=== PATIENT | female | born 1935 | race Asian ===

== ENCOUNTER 2017-09-17 08:10 | Outpatient (CLI) | payer MEDICARE, OTHER | END 2017-09-17 08:11 | disposition critical access hospital (66) | LOC: EMS 08:10 | PROVIDERS: ATTEND Surgery | DX: I46.9 Cardiac arrest, cause unspecified (principal) | CPT/HCPCS: A0425; A0433 ==

== ENCOUNTER 2017-09-17 08:25 | Emergency (ER) | payer MEDICARE, OTHER ==
[2017-09-17] MEDS ORDERED: MAGNESIUM SULFATE 2 GRAM 2 GM/50 ML BAG IV ONE (08:45)
[2017-09-17] MEDS ORDERED: SODIUM CHLORIDE 0.9% 1,000 ML IV ONE (08:45)
--- NOTE | 2017-09-17 08:48 | ED Physician Documentation ---
PD HPI CPR - Stated complaint Stated Complaint: POST ARREST - History obtained from History obtained from: Family, EMS - History of Present Illness Timing - onset: Today Timing - onset during: Rest Preceding symptoms: Diaphoresis, Weakness, NV Contributing factors: Choked (last night), Other (PMR on prednisone) Recently seen: Other (on the way to get a sed rate checked.) Witnessed: Arrest witnessed Fall: No fall Bystander CPR: No bystander CPR, Downtime before CPR (2minutes) EMS findings: Unresponsive, Apneic, Pulseless, V fib Treatment [employer]CHO[employer] PHOTOGR[employer]HER: CPR, Defibrillated, Oxygen, Intubated, Epi, IV Advanced directive: Full code - Additional information Additional information: 81-year-old female with history of PMR was getting ready to go get a blood test drawn this morning for her sedimentation rate when she was sitting on the commode did not feel well and collapsed and was unresponsive. Her immediately called 911 and first responders arrived within 2 minutes. CPR was done effectively with good end-tidal CO2 she was eventually intubated shocked once and given 2 rounds of epinephrine she is now regained a spontaneous pulse and a narrow complex rhythm. She is brought to the hospital for further evaluation. Review of Systems Unable to obtain: Intubated, Other (Review of systems taken from the patient's ) Constitutional: denies: Fever Eyes: denies: Decreased vision Ears: denies: Ear pain Nose: denies: Congestion Throat: denies: Sore throat Cardiac: denies: Chest pain / pressure Respiratory: reports: Cough (Cough once in the middle of the night). denies: Dyspnea GI: reports: Nausea : denies: Dysuria, Frequency Skin: denies: Rash Musculoskeletal: reports: Extremity pain. denies: Neck pain, Back pain Neurologic: denies: Generalized weakness, Focal weakness, Numbness PD PAST MEDICAL HISTORY - Past Medical History Cardiovascular: Hypertension, High cholesterol Respiratory: COPD Endocrine/Autoimmune: None GI: GERD : None HEENT: None Psych: None Musculoskeletal: Osteoporosis, Chronic back pain, Other Derm: Other - Past Surgical History Past Surgical History: Yes General: Colonoscopy Ortho: Spine surgery, Other - Present Medications Home Medications: Ambulatory Orders Medication Instructions Recorded Confirmed Esomeprazole Magnesium [Nexium] 20 mg PO HS 02/28/13 03/06/15 Gabapentin 300 mg PO BID 02/28/13 03/06/15 Metoprolol Succinate 25 mg PO HS 02/28/13 03/06/15 Acetaminophen [Tylenol] 325 mg ORAL ONCE PRN 05/26/14 03/06/15 Calcium Citrate/Vitamin D2 1 tab ORAL BID 05/26/14 03/06/15 [Tiburcio-Citrate Plus Vitamin D Tab] Cyanocobalamin/Folic Acid [Vitamin 1 each PO DAILY 05/26/14 03/06/15 G24-[id number] Acid Tablet] Losartan [Cozaar] 25 mg ORAL DAILY 05/26/14 03/06/15 Magnesium Oxide/Mag Aa Chelate 300 mg PO DAILY 05/26/14 03/06/15 [Magnesium 300 mg Capsule] Multivit-Min/FA/Lycopene/Lut 1 tab ORAL DAILY 05/26/14 03/06/15 [Centrum Silver Tablet] Zolpidem [Ambien] 5 mg PO HS 05/26/14 03/06/15 predniSONE [Prednisone] 7 mg ORAL DAILY 05/26/14 03/06/15 Hard Microfilm Mounter [[place] Advance 12/29/14 03/06/15 Lead Refiner] Hydroxychloroquine [Plaquenil] 200 mg PO DAILY 12/29/14 03/06/15 oxyCODONE [Roxicodone] 1 tab PO Q4-6H PRN 12/29/14 03/06/15 HYDROcodone/CHLORPHEN POLIS 5 ml PO Q12H PRN 03/06/15 03/06/15 [Tussionex Pennkinetic Susp] - Allergies Allergies/Adverse Reactions: Allergies Allergy/AdvReac Type Severity Reaction Status Date / Time niacin Allergy Mild Unknown Verified 03/06/15 09:12 Penicillins Allergy Mild Rash Verified 03/06/15 09:03 aspirin AdvReac Intermediate Nausea Verified 03/06/15 09:12 hydrocodone AdvReac Mild Itching Verified 03/06/15 09:13 - Social History Does the pt smoke?: No Smoking Status: Never smoker Does the pt drink ETOH?: No Does the pt have substance abuse?: No - Immunizations Immunizations are current?: Yes Immunizations: TDAP >10years/unknown - POLST Patient has POLST: No PD ED PE NORMAL - Vitals Vital signs reviewed: Yes (Hypertensive) - General General: Well developed/nourished, Other (The patient is intubated and being mechanically ventilated she does make an occasional spontaneous respiratory effort.) - HEENT HEENT: Atraumatic, Other (Pupils are fixed and dilated) - Neck Neck: Supple, no meningeal sign, No bony TTP - Cardiac Cardiac: RRR, No murmur - Respiratory Respiratory: No respiratory distress, Clear bilaterally - Abdomen Abdomen: Soft, Non tender - Back Back: No CVA TTP, No spinal TTP - Derm Derm: Normal color, Warm and dry, No rash - Extremities Extremities: No edema - Neuro Neuro: Other (The patient is motionless pupils are fixed and dilated she does make an occasional effort to breathe.) Eye Opening: None Motor: None Verbal: None GCS Score: 3 Results - Vitals Vitals: Vital Signs - 24 hr 09/17/17 09/17/17 09/17/17 08:30 08:51 08:53 Temperature 35.6 C L Heart Rate 74 67 67 Respiratory 16 16 Rate Blood Pressure 134/86 H 122/83 H 97/70 O2 Saturation 95 95 99 09/17/17 09/17/17 09/17/17 08:56 08:58 09:01 Temperature Heart Rate 67 64 75 Respiratory 16 16 Rate Blood Pressure 114/74 116/70 O2 Saturation 98 99 09/17/1718 09/17/17 09:05 09:22 09:28 Temperature Heart Rate 74 67 71 Respiratory 16 16 16 Rate Blood Pressure 116/56 L 107/62 102/49 L O2 Saturation 100 100 100 09/17/1718 09/17/17 09:30 09:35 09:40 Temperature Heart Rate 66 65 65 Respiratory 16 16 16 Rate Blood Pressure 96/72 100/57 L 102/58 L O2 Saturation 100 98 97 09/17/1718 09/17/17 09:45 09:55 10:00 Temperature 35.3 C L Heart Rate 67 63 52 L Respiratory 16 16 16 Rate Blood Pressure 99/49 L 97/54 L O2 Saturation 98 96 95 09/17/17 09/17/17 09/17/17 10:05 10:10 10:15 Temperature Heart Rate 64 56 L 64 Respiratory 16 16 16 Rate Blood Pressure 98/50 L 94/51 L 102/54 L O2 Saturation 96 87 L 98 09/17/17 09/17/17 09/17/17 10:20 10:25 10:30 Temperature Heart Rate 66 58 L 58 L Respiratory 16 16 16 Rate Blood Pressure 108/61 91/54 L 91/54 L O2 Saturation 95 87 L 89 L 09/17/17 09/17/17 09/17/17 10:36 10:45 10:47 Temperature Heart Rate 55 L 67 68 Respiratory 16 16 Rate Blood Pressure 89/58 L 89/58 L O2 Saturation 91 L 88 L 88 L 09/17/17 09/17/17 10:51 10:55 Temperature Heart Rate 67 Respiratory 16 Rate Blood Pressure 104/65 92/54 L O2 Saturation 94 97 Oxygen O2 Source Mechanical ventilator - EKG (time done) 0836 Rate: Rate (enter#) (74) [place]: Other (LAFB) Intervals: RBBB Compare to prior EKG: Changed from prior EKG Computer interpretation: Agree with computer - Labs Labs: Laboratory Tests 09/17/17 09/17/17 09/17/17 09:14 09:14 09:55 WBC 14.0 H RBC 2.70 L Hgb 8.8 L Hct 27.3 L MCV 101.1 H MCH 32.5 H MCHC 32.1 RDW 14.1 Plt Count 165 MPV 8.1 Neut # Not Reportable Lymph # Not Reportable Whit[place] # Not Reportable Eos # Not Reportable Baso # Not Reportable Absolute Nucleated RBC Not Reportable Total Counted 100 Band Neuts % (Manual) 2 Abnorm Lymph % (Manual) 0 Metamyelocytes % 1 H Myelocytes % 1 H Nucleated RBC % Not Reportable Neutrophils # (Manual) 11.9 H Lymphocytes # (Manual) 1.0 L Monocytes # (Manual) 0.8 Eosinophils # (Manual) 0.0 Basophils # (Manual) 0.0 Differential Comment MANUAL DIFFERENTIAL Manual Slide Review Indicated WBC Morphology NORMAL APPEARANCE Platelet Estimate NORMAL (130-450,000) Platelet Morphology NORMAL APPEARANCE RBC Morph Micro Appear NORMAL APPEARANCE Bld Gas Analysis Time 0919 Sample Site RIGHT BRACHIAL ABG pH 7.24 L ABG pCO2 32 L ABG pO2 290 H* ABG HCO3 13.4 L ABG Total CO2 14.4 L ABG O2 Saturation 99 H ABG Base Excess -12.8 L [place] Test NOT APPLICABLE Respiration Rate 16 O2 Delivery Device VENTILATOR Vent Mode SIMV FiO2 100.00 Tidal Volume 450 PEEP 5 Pressure Support Vent 10 Sodium 134 L Potassium 4.8 Chloride 101 Carbon Dioxide 18 L Anion Gap 15.0 H BUN 32 H Creatinine 1.5 H Estimated GFR (MDRD) 33 L Glucose 110 H Lactic Acid Calcium 8.8 Magnesium Total Bilirubin 1.0 AST 274 H ALT 239 H Alkaline Phosphatase 48 Troponin I B-Natriuretic Peptide Total Protein 5.1 L Albumin 2.6 L Globulin 2.5 Albumin/Globulin Ratio 1.0 Lipase < 10 L Urine Color Urine Clarity Urine pH Ur Specific [place] Urine Protein Urine Glucose (UA) Urine Ketones Urine Occult Blood Urine Nitrite Urine Bilirubin Urine Urobilinogen Ur Leukocyte Esterase Urine RBC Urine WBC Ur Epithelial Cells Ur Squamous Epith Cells Urine Bacteria Urine Casts Ur Microscopic Review Urine Culture Comments 09/17/17 09/17/17 09/17/17 09:55 09:55 09:55 WBC RBC Hgb Hct MCV MCH MCHC RDW Plt Count MPV Neut # Lymph # [place] # Eos # Baso # Absolute Nucleated RBC Total Counted Band Neuts % (Manual) Abnorm Lymph % (Manual) Metamyelocytes % Myelocytes % Nucleated RBC % Neutrophils # (Manual) Lymphocytes # (Manual) Monocytes # (Manual) Eosinophils # (Manual) Basophils # (Manual) Differential Comment Manual Slide Review WBC Morphology Platelet Estimate Platelet Morphology RBC Morph Micro Appear Bld Gas Analysis Time Sample Site ABG pH ABG pCO2 ABG pO2 ABG HCO3 ABG Total CO2 ABG O2 Saturation ABG Base Excess [place] Test Respiration Rate O2 Delivery Device Vent Mode FiO2 Tidal Volume PEEP Pressure Support Vent Sodium Potassium Chloride Carbon Dioxide Anion Gap BUN Creatinine Estimated GFR (MDRD) Glucose Lactic Acid 7.5 H* Calcium Magnesium Total Bilirubin AST ALT Alkaline Phosphatase Troponin I 0.36 B-Natriuretic Peptide 4423.0 H Total Protein Albumin Globulin Albumin/Globulin Ratio Lipase Urine Color Urine Clarity Urine pH Ur Specific [place] Urine Protein Urine Glucose (UA) Urine Ketones Urine Occult Blood Urine Nitrite Urine Bilirubin Urine Urobilinogen Ur Leukocyte Esterase Urine RBC Urine WBC Ur Epithelial Cells Ur Squamous Epith Cells Urine Bacteria Urine Casts Ur Microscopic Review Urine Culture Comments 09/17/17 09/17/17 09:55 10:00 WBC RBC Hgb Hct MCV MCH MCHC RDW Plt Count MPV Neut # Lymph # Whitley # Eos # Baso # Absolute Nucleated RBC Total Counted Band Neuts % (Manual) Abnorm Lymph % (Manual) Metamyelocytes % Myelocytes % Nucleated RBC % Neutrophils # (Manual) Lymphocytes # (Manual) Monocytes # (Manual) Eosinophils # (Manual) Basophils # (Manual) Differential Comment Manual Slide Review WBC Morphology Platelet Estimate Platelet Morphology RBC Morph Micro Appear Bld Gas Analysis Time Sample Site ABG pH ABG pCO2 ABG pO2 ABG HCO3 ABG Total CO2 ABG O2 Saturation ABG Base Excess Fermin Test Respiration Rate O2 Delivery Device Vent Mode FiO2 Tidal Volume PEEP Pressure Support Vent Sodium Potassium Chloride Carbon Dioxide Anion Gap BUN Creatinine Estimated GFR (MDRD) Glucose Lactic Acid Calcium Magnesium 3.1 H Total Bilirubin AST ALT Alkaline Phosphatase Troponin I B-Natriuretic Peptide Total Protein Albumin Globulin Albumin/Globulin Ratio Lipase Urine Color YELLOW Urine Clarity SL. CLOUDY Urine pH 6.5 Ur Specific [place] >=1.030 H Urine Protein 30 H Urine Glucose (UA) NEGATIVE Urine Ketones NEGATIVE Urine Occult Blood SMALL H Urine Nitrite NEGATIVE Urine Bilirubin NEGATIVE Urine Urobilinogen 0.2 (NORMAL) Ur Leukocyte Esterase NEGATIVE Urine RBC 11-25 H Urine WBC 0-3 Ur Epithelial Cells FEW Renal Tubular Ur Squamous Epith Cells RARE Squamous Urine Bacteria Moderate H Urine Casts 0-2 Cellular Casts Ur Microscopic Review INDICATED Urine Culture Comments INDICATED - Rads (name of study) 1 view chest Radiology: Prelim report reviewed (Impression: 1. Diffuse bilateral interstitial and airspace opacities. 2. ET tube with the tip 1.9 cm from the jose. 3. Orogastric tube extending into the upper abdomen), EMP read indepedently, See rad report PD MEDICAL DECISION MAKING - ED course Complexity details: reviewed old records, reviewed results, re-evaluated patient , considered differential, d/w family ED course: 81-year-old female arrives to the emergency department after resuscitative care has established return of spontaneous circulation. She arrives with her pupils fixed and dilated and after some period of time in the emergency department on life support her pupils returned to a normal range she does make some effort to breathe herself. The electrocardiogram cardiogram does not show STEMI. The chest x-ray is concerning for bilateral infiltrate. The patient is treated in the emergency department with intravenous magnesium and she is on prednisone 15 mg per day so she is given a dose of hydrocortisone 100 mg intravenously she is given iced saline and cooling protocol is begun. Dr. Patel at [facility] the buffing turner and counter is consulted in the case and graciously agrees to accept the patient in transfer. Departure - Departure Disposition: 02 Transfer Acute Care Hosp Clinical Impression: Cardiac arrest Pneumonia Qualifiers: Pneumonia type: due to unspecified organism Laterality: bilateral Lung location : unspecified part of lung Qualified Code(s): J18.9 - Pneumonia, unspecified organism Discharge Date/Time: 09/17/17 11:00
--- NOTE | 2017-09-17 08:59 | XRAY Report ---
EXAM: CHEST RADIOGRAPHY EXAM DATE: 09/17/2017 08:41 AM. CLINICAL HISTORY: Post arrest. Post OG tube. COMPARISON: 03/06/2015. TECHNIQUE: 1 view. FINDINGS: Lungs/Pleura: Diffuse bilateral interstitial and airspace opacities. No pneumothorax. Mediastinum: Heart is enlarged. Aortic atherosclerosis. Other: ET tube present with the tip 1.9 cm from jose. Orogastric tube present extending into the up per abdomen although the tip is not visualized. No acute osseous abnormalities. Changes are seen from inferior cervical fusion. IMPRESSION: 1. Diffuse bilateral interstitial and airspace opacities. 2. ET tube with the tip 1.9 cm from the jose. 3. Orogastric tube present extending into the upper abdomen. [facility] Referring Provider Line: [phone] SITE ID: [id number]
[2017-09-17 09:23] LABS: ABG BASE EXCESS -12.8 mmol/L (-2.0-3.0); ABG HCO3 13.4 mmol/L (22.0-26.0); ABG PCO2 32 mmHg (34-45); ABG PH 7.24 (7.35-7.45); ABG TCO2 14.4 MMOL/L (21.0-29.0)
[2017-09-17 09:24] LABS: ABG OXYGEN SATURATION 99 % (94-98); BASOPHILS % (AUTO) 0.4 %; EOSINOPHILS % (AUTO) 0.2 %; HGB - HEMOGLOBIN 8.8 g/dL (12.0-16.0); LYMPHOCYTES % (AUTO) 7.6 %; MEAN CORPUSCULAR HEMOGLOBIN 32.5 pg (27.0-31.0); MEAN CORPUSCULAR HGB CONC 32.1 g/dL (32.0-36.0); MEAN CORPUSCULAR VOLUME 101.1 fL (81.0-99.0); MEAN PLATELET VOLUME 8.1 fL (7.9-10.8); MONOCYTES % (AUTO) 4.8 %; PLT - PLATELET COUNT 165 10^3/uL (130-450); RED CELL DISTRIBUTION WIDTH 14.1 % (12.0-15.0)
[2017-09-17 09:27] LABS: ABG PO2 290 mmHg (80-100)
[2017-09-17] MEDS ORDERED: HYDROCORTISONE SUCCINATE 100 MG/2 ML VIAL IVP STA (09:34)
[2017-09-17] MEDS ORDERED: cefTRIAXone 1 GM in SODIUM CHLORIDE 0.9% MINIBAG 100 ML IV STA (09:34)
[2017-09-17] MEDS ORDERED: AZITHROMYCIN INJ 500 MG in SODIUM CHLORIDE 0.9% 250 ML IV STA (09:34)
[2017-09-17 09:49] LABS: ABNORMAL LYMPHS % (MANUAL) 0 %
[2017-09-17 09:54] LABS: BAND NEUTROPHILS % (MANUAL) 2 %; LYMPHOCYTES % (MANUAL) 7 %; METAMYELOCYTES % (MANUAL) 1 %; MONOCYTES # (MANUAL) 0.8 10^3/uL (0.0-1.0); MYELOCYTES % (MANUAL) 1 %; NEUTROPHILS # (MANUAL) 11.9 10^3/uL (1.5-6.6); NEUTROPHILS % (MANUAL) 83 %
[2017-09-17 09:55] LABS: DIFFERENTIAL COMMENT MANUAL DIFFERENTIAL; PLATELET ESTIMATE, MANUAL NORMAL (130-450,000) (NORMAL); PLATELET MORPHOLOGY NORMAL APPEARANCE (NORMAL); RBC MORPHOLOGY (MULTIPLE) NORMAL APPEARANCE (NORMAL)
[2017-09-17 10:20] LABS: ALBUMIN 2.6 g/dL (3.2-5.5); ALKALINE PHOSPHATASE 48 IU/L (42-121); ALT ALANINE AMINOTRANSFERASE 239 IU/L (10-60); AST ASPARTATE AMINOTRANSFERASE 274 IU/L (10-42); BUN - BLOOD UREA NITROGEN 32 mg/dL (6-20); CALCIUM 8.8 mg/dL (8.5-10.3); CARBON DIOXIDE - CO2 18 mmol/L (21-32); CHLORIDE 101 mmol/L (101-111); CREATININE 1.5 mg/dL (0.4-1.0); GFR - MDRD 33 (>89); GLUCOSE 110 mg/dL (70-100); LIPASE < 10 U/L (22-51); SODIUM 134 mmol/L (135-145); TOTAL PROTEIN 5.1 g/dL (6.7-8.2)
[2017-09-17 10:58] LABS: BILIRUBIN,URINE NEGATIVE (NEGATIVE); GLUCOSE, URINE (UA) NEGATIVE (NEGATIVE); KETONES,URINE (UA) NEGATIVE (NEGATIVE); LEUKOCYTE ESTERASE, URINE NEGATIVE (NEGATIVE); NITRITE,URINE NEGATIVE (NEGATIVE); OCCULT BLOOD,URINE SMALL (NEGATIVE); PH,URINE 6.5 PH (5.0-7.5); PROTEIN,URINE 30 mg/dL (NEGATIVE); UROBILINOGEN,URINE 0.2 (NORMAL) E.U./dL (NORMAL)
[2017-09-17 11:03] LABS: CLARITY,URINE SL. CLOUDY (CLEAR)
[2017-09-17 11:10] LABS: BACTERIA,URINE Moderate /HPF (None Seen); EPITHELIAL CELLS,UR FEW Renal Tubular /HPF (<= Few); SQUAMOUS EPITHELIAL CELL,UR RARE Squamous (<= Few)
[2017-09-17 11:48] VITALS: BP 92/54
== END 2017-09-17 11:00 | disposition short-term general hospital (02) ==
LOC: EDUNIT# → ED 08:25
DX: I46.9 Cardiac arrest, cause unspecified (principal); Z86.74 Personal history of sudden cardiac arrest; J18.9 Pneumonia, unspecified organism; I45.2 Bifascicular block; R94.31 Abnormal electrocardiogram [ECG] [EKG]; I10 Essential (primary) hypertension; E78.00 Pure hypercholesterolemia, unspecified; J44.9 Chronic obstructive pulmonary disease, unspecified; K21.9 Gastro-esophageal reflux disease without esophagitis; M81.0 Age-related osteoporosis without current pathological fracture
CPT/HCPCS: 36415; 36600; 51702; 71045; 80053; 81001; 81003; 82803; 83605; 83690; 83735; 83880; 84484; 85025; 87040; 87086; 93005; 94770; 96361; 96365; 96367; 96375; 99285